=== PATIENT | female | born 1970 | race African-American/Black ===

== ENCOUNTER 2017-01-09 10:34 | Emergency (ER) ==
[2017-01-09 10:42] VITALS: BP 173/115
--- NOTE | 2017-01-09 11:02 | PROVIDER DOCUMENTATION ---
HPI-EENT General - General Source: patient - History of Present Illness-EENT General EENT Location: reports: ear (R), ear (L), throat Quality of Pain: reports: aching Severity: reports: mild Onset/Duration: reports: 3 days ago Timing: reports: still present, intermittent Prearrival Treatment: Initiated no prearrival treatment Associated Symptoms: reports: cough, sore throat, other (bilateral ear pain) Similar Symptoms Previously?: Yes Recently seen or treated by another doctor?: No - Eyes Eye Problem Symptoms: denies: eye pain - Ears Ear Problem Symptoms: reports: earache (bilateral) Ear Problem Context: reports: none - Throat/Dental Throat/Dental Problem Symptoms: reports: sore throat Throat/Dental Problem Context: denies: recent dental extractions Recently seen a dentist or have an appointment?: No <Jaz Juarez - Last Filed: 01/09/17 10:56> <Jame Alves - Last Filed: 01/09/17 11:16> - General Chief Complaint: Sore Throat Stated Complaint: COUGH/COLD SX Time Seen by Provider: 01/09/17 10:44 Allergies/Adverse Reactions: Patient Allergies Allergy/AdvReac Type Severity Reaction Status Date / Time No Known Allergies Allergy Verified 10/29/16 04:04 Home Medications: Home Medication List Medication Instructions Recorded Confirmed Last Taken Type LISINOpril [Prinivil] 40 mg PO DAILY 09/30/16 10/05/16 10/05/16 05:00 History Minoxidil 2.5 mg PO DAILY 09/30/16 10/05/16 10/05/16 05:00 History Acetaminophen [Tylenol] 1,000 mg PO Q6H #0 tablet 10/06/16 Unknown Rx Celecoxib [Celebrex] 200 mg PO BID #60 capsule 10/06/16 Unknown Rx Docusate Sodium [Colace] 100 mg PO BID #0 capsule 10/06/16 Unknown Rx Famotidine [Pepcid] 20 mg PO DAILY #0 tablet 10/06/16 Unknown Rx Magnesium Hydroxide [Milk of 30 ml PO Q6H PRN PRN #0 udc 10/06/16 Unknown Rx Magnesia] Oxycodone I.r. [Oxy Ir] 5 - 10 mg PO Q3H PRN PRN #60 11/29/16 Unknown Rx capsule Pregabalin [Lyrica] 75 mg PO BID #60 capsule 10/06/16 Unknown Rx Rivaroxaban [Xarelto] 10 mg PO DAILY@0600 #14 tablet 10/06/16 Unknown Rx Tramadol [Ultram] 100 mg PO Q6H #120 tablet 10/06/16 Unknown Rx Benzonatate [Tessalon Perle] 200 mg PO TID PRN #18 capsule 10/24/16 Unknown Rx Fluticasone 50 Mcg Nasal [place] 1 spray BARNEY BID #1 bottle 10/24/16 Unknown Rx [Flonase] Loratadine [Claritin] 10 mg PO DAILY #30 tablet 10/24/16 Unknown Rx Guaifenesin/Codeine [Robitussin-AC] 5 ml PO Q4H PRN PRN #6 udc 10/29/16 Unknown Rx Losartan/Hydrochlorothiazide 1 each PO DAILY #30 tablet 10/29/16 Unknown Rx [Losartan-Hctz 100-12.5 mg Tab] Amoxicillin [Amoxil] 500 mg PO BID #10 capsule 01/09/17 Unknown Rx Guaifenesin/D-Methorphan Hb/PE 1 each PO Q6-8H PRN PRN #14 tablet 01/09/17 Unknown Rx [Deconex Dmx Tablet] - History of Present Illness-EENT General Nature of Presenting Problem: Pt is 46 y/o F presents to the ED with cough, ear pain and sore throat. Pt states symptoms started 3 days ago. Pt states F on but has not had it since. Pt states she works in a cold environment. Pt denies N/V/D. (Jaz Juarez) Review of Systems - Adult - REVIEW OF SYSTEMS - ADULT Constitutional: denies: chills, fever Eyes: denies: blurred vision, double vision Ears, Nose, Mouth & Throat: reports: ear pain (bilateral), throat pain. denies : nose pain Cardiovascular: denies: chest pain, heart murmur, irregular heart rate Respiratory: reports: cough. denies: shortness of breath, wheezing Gastrointestinal: denies: abdominal pain, diarrhea, nausea, vomiting Genitourinary: denies: dysuria, hematuria Musculoskeletal: denies: bone pain, joint pain, neck pain Integumentary: denies: hives, itching Neurological: denies: dizziness/vertigo, headache/migraines Psychiatric: reports: no symptoms reported Endocrine: reports: no symptoms reported Hematologic/Lymphatic: reports: no symptoms reported Allergic/Immunologic: reports: no symptoms reported All Other Systems: Reviewed and Negative <Rachel Juarezomi - Last Filed: 01/09/17 10:56> Past History - Adult - PAST MEDICAL HISTORY-ADULT Review of Records: reports: Nursing Assessment Review, Medications Reviewed, Social history reviewed & non-contributory. Major Childhood Illnesses: reports: denies history Cardiovascular: reports: HTN Respiratory: reports: asthma Gastrointestinal: reports: GERD Obstetrical/Gynecological: reports: uterine/ovarian cancer (hx) Genitourinary: reports: denies history Musculoskeletal: reports: arthritis, chronic pain Neurological: reports: denies history Endocrine/Immune: reports: denies history Other Conditions: reports: denies history - PRIOR SURGERIES/PROCEDURES Surgical/Procedure History: reports: reviewed, not pertinent, hysterectomy, orthopedic (extremity) - IMMUNIZATION STATUS Childhood Immunizations: See Nurse Assessment Flu Vaccine: See Nurse Assessment - FAMILY HISTORY Family History: diabetes, CAD over 55 yo, HTN - SOCIAL HISTORY Smoking: denies Substance Use: alcohol Alcohol Use Frequency: occasionally Number of drinks per typical drinking period:: 2 drinks Living Situation: family <Lizzie Juarezi - Last Filed: 01/09/17 10:56> Physical Exam- EENT - Physical Exam EENT Initial Vital Signs Reviewed: Yes General Appearance: appears well, alert, no apparent distress Eye Exam: bilateral eye: normal inspection, PERRL, EOMI Ear Exam: bilateral ear: auricle normal, canal normal, TM normal Nasal Exam: normal inspection Throat Exam: normal mouth inspection, pharynx normal Neck: non-tender, full range of motion, supple, normal inspection Respiratory: chest non-tender, lungs clear, normal breath sounds, no pleuratic chest pain, no respiratory distress, no accessory muscle use Cardiovascular: normal peripheral pulses, regular rate, rhythm, no edema, no gallop, no JVD, no murmur Abdominal Exam: normal bowel sounds, non tender, soft, no organomegaly, no pulsatile mass Lymphatic: no adenopathy Back Exam: normal inspection, no CVA tenderness, no vertebral tenderness Extremity: normal range of motion, non-tender, normal gait, normal inspection, no pedal edema, no calf tenderness Integumentary: normal color, normal turgor, warm/dry Neurologic: personnel coordinator II-XII nml as tested, grossly normal, no motor/sensory deficits Psych/Mental Status: normal mood/affect, normal thought content, normal thought process, oriented x 3 <Jaz Juarez - Last Filed: 01/09/17 10:56> Progress <Jaz Juarez - Last Filed: 01/09/17 10:56> <Jame Alves - Last Filed: 01/09/17 11:16> - PLAN OF CARE/RESULTS Progress/Plan/Lab Results: Orders Category Date Time Status INFLUENZA SCREEN PL Stat Lab 01/09/17 Received strep [DIRECT STREP PL] Stat Lab 01/09/17 10:42 Received Vital Signs - 24 hr 01/09/17 10:40 Temperature 97.9 F Pulse Rate 93 H Respiratory 18 Rate Blood Pressure 173/115 O2 Sat by Pulse 100 Oximetry (Jaz Juarez) Laboratory Tests 01/09/17 01/09/17 10:42 Unknown Influenza A (Rapid) NEGATIVE Influenza B (Rapid) NEGATIVE Group A Strep Rapid NEGATIVE Orders Category Date Time Status INFLUENZA SCREEN PL Stat Lab 01/09/17 Completed strep [DIRECT STREP PL] Stat Lab 01/09/17 10:42 Completed Benzonatate [Tessalon] Med 01/09/17 11:13 Discontinued 100 mg PO NOW ONE Dexamethasone [Decadron] Med 01/09/17 11:13 Discontinued 10 mg IM NOW ONE Vital Signs Temp Pulse Resp BP Pulse Ox 01/09/17 10:40 97.9 F 93 H 18 173/115 100 No Known Allergies Allergy (Verified 10/29/16 04:04) LISINOpril [Prinivil] 40 mg PO DAILY 09/30/16 Minoxidil 2.5 mg PO DAILY 09/30/16 Acetaminophen [Tylenol] 1,000 mg PO Q6H #0 tablet 10/06/16 Celecoxib [Celebrex] 200 mg PO BID #60 capsule 10/06/16 Docusate Sodium [Colace] 100 mg PO BID #0 capsule 10/06/16 Famotidine [Pepcid] 20 mg PO DAILY #0 tablet 10/06/16 Magnesium Hydroxide [Milk of Magnesia] 30 ml PO Q6H PRN PRN #0 udc 10/06/16 Oxycodone I.r. [Oxy Ir] 5 - 10 mg PO Q3H PRN PRN #60 capsule 10/06/16 Pregabalin [Lyrica] 75 mg PO BID #60 capsule 10/06/16 Rivaroxaban [Xarelto] 10 mg PO DAILY@0600 #14 tablet 10/06/16 Tramadol [Ultram] 100 mg PO Q6H #120 tablet 10/06/16 Benzonatate [Tessalon Perle] 200 mg PO TID PRN #18 capsule 10/24/16 Fluticasone 50 Mcg Nasal [place] [Flonase] 1 spray BAR[place] BID #1 bottle 10/24/16 Loratadine [Claritin] 10 mg PO DAILY #30 tablet 10/24/16 Guaifenesin/Codeine [Robitussin-AC] 5 ml PO Q4H PRN PRN #6 udc 10/29/16 Losartan/Hydrochlorothiazide [Losartan-Hctz 100-12.5 mg Tab] 1 each PO DAILY # 30 tablet 10/29/16 Laboratory 01/09/17 01/09/17 Unknown 10:42 Influenza A (Rapid) NEGATIVE Influenza B (Rapid) NEGATIVE Group A Strep Rapid NEGATIVE (Jame Alves) Departure <Jaz Juarez - Last Filed: 01/09/17 10:56> - Departure Time of Disposition Order: 11:15 Certified Medical Emergency: Urgent <Jame Alves - Last Filed: 01/09/17 11:16> - Departure DIAGNOSIS: Sinusitis Qualifiers: Sinusitis location: unspecified location Chronicity: acute Recurrence: recurrent Qualified Code(s): J01.91 - Acute recurrent sinusitis, unspecified Pharyngitis Qualifiers: Pharyngitis/tonsillitis etiology: unspecified etiology Qualified Code(s): J02.9 - Acute pharyngitis, unspecified Disposition: HOME 01 Condition: Good Additional Instructions: Take medication as prescribed. Follow up with your primary care provider. ED Follow Up Instructions: You have been treated by a care provider in the Emergency Department. These instructions are being provided to you so you can have an understanding of how to care for yourself upon discharge. Upon discharge from the Emergency Department, you are responsible for making arrangements for follow-up care by a physician of your choice. Take all prescribed medications as directed. Return to the Emergency Department immediately for any new or worsening symptoms. You may call the Physician Referral phone number at [phone] to obtain a list of Physicians who are taking new patients. Prescriptions: Amoxicillin [Amoxil] 500 mg PO BID #10 capsule Guaifenesin/D-Methorphan Hb/PE [Deconex Dmx Tablet] 1 each PO Q6-8H PRN PRN #14 tablet PRN Reason: Cough and congestion Referrals: Mary Case CRNP [Primary Care Provider] - Attestation - Scribe Verification/Attestation Scribe:: Jaz Juarez Acting as Scribe for:: Jame Alves Scribe documention review:: This chart was documented by a scribe and accurately reflects the service the provider performed and the decisions made by the provider. <Jaz Juarez - Last Filed: 01/09/17 10:56> - Physician/ DELISA Attestation Patient care was provided by Advanced Practice Provider:: Yes Advanced Practice Provider:: Jame Alves Advanced Practice Provider documentation review:: The Mid-level provider documentation, treatment plan and medical decision making was reviewed by the physician who agrees with all treatment and medical decision making by the MLP. <Jame Alves - Last Filed: 01/09/17 11:16> Physician Attestation
[2017-01-09] MEDS ORDERED: TESSALON PO ONE (11:13)
[2017-01-09] MEDS ORDERED: DECADRON IM ONE (11:13)
== END 2017-01-09 11:39 | disposition home or self-care (01) ==
LOC: P.ED 10:34
DX: J01.91 Acute recurrent sinusitis, unspecified (principal); J02.9 Acute pharyngitis, unspecified; H92.03 Otalgia, bilateral; R05 Cough; I10 Essential (primary) hypertension; M19.90 Unspecified osteoarthritis, unspecified site; G89.29 Other chronic pain; Z79.899 Other long term (current) drug therapy; Z85.40 Personal history of malignant neoplasm of unspecified female genital organ; Z82.49 Family history of ischemic heart disease and other diseases of the circulatory system; Z83.3 Family history of diabetes mellitus
CPT/HCPCS: 87081; 87430; 87804; 96372